=== PATIENT | male | born 1965 | race Caucasian/White ===

== ENCOUNTER → 2020-04-30 | Outpatient (CLI) | payer OTHER ==
--- NOTE | 2020-04-30 11:42 | Diagnostic Imaging Report ---
TECHNIQUE: Magnetic resonance imaging of the RIGHT humerus was performed WITHOUT injected contrast. COMPARISON: None available. HISTORY: Upper arm pain, tear of biceps tendon FINDINGS: BONE: No fracture or acute osseous abnormality. No infiltrative bone marrow replacing signal abnormality. Subcentimeter reactive subchondral cystic changes at the greater tuberosity. JOINTS: No joint malalignment or dislocation. Moderate hypertrophic degenerative changes of the acromioclavicular joint. Acromion is unremarkable. No discrete tear of the glenoid labrum given limitations with large [id number]. No focal cartilage defect of the glenohumeral joint. MUSCLES AND TENDONS: Intra-articular portion of the biceps tendon is not visualized, likely represents complete tear of long head of the biceps tendon with retraction to the bicipital groove. High-grade partial-thickness articular sided tear of the supraspinatus tendon. Additional tendinosis and low-grade interstitial tearing of the infraspinatus tendon. Subscapularis and teres minor tendons remain intact and unremarkable. SOFT TISSUES: Otherwise, the soft tissues appear unremarkable. IMPRESSION: Complete tear of the intra-articular long head of the biceps tendon with retraction to the bicipital groove. Rotator cuff tendinosis with high-grade partial-thickness articular sided tear of the supraspinatus tendon. Additional low-grade interstitial tearing of the infraspinatus tendon. Moderate hypertrophic degenerative changes of the acromioclavicular joint. Signed by: Dr. Jay Burns M.D. on 04/30/2020 11:38 AM
== END ==
LOC: MRI 09:40
PROVIDERS: ATTEND Family Medicine
DX: S46.211A Strain of muscle, fascia and tendon of other parts of biceps, right arm, initial encounter (principal)